=== PATIENT | female | born 1970 | race Caucasian/White ===

== ENCOUNTER 2019-11-12 14:14 | Emergency (ER) | payer OTHER ==
[2019-11-12] MEDS ORDERED: CLINDAMYCIN 900 MG/D5W RTU 900 MG/50 ML RTUPB IV ONE (15:57)
[2019-11-12] MEDS ORDERED: LEVOFLOXACIN 750 MG/D5W RTU 750 MG/150 ML RTUPB IV ONE (15:59)
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
--- NOTE | 2019-11-12 16:29 | RADIOLOGY REPORT (SQ) ---
EXAM DESCRIPTION: CT HEAD WITHOUT IMAGES COMPLETED DATE/TIME: 11/12/2019 4:14 pm REASON FOR STUDY: RIVERA left periorbital edema COMPARISON: None. TECHNIQUE: Axial images acquired through the brain without intravenous contrast. Images reviewed wi th bone, brain and subdural windows. Additional sagittal and coronal reconstructions were generated. Images stored on PACS. All CT scanners at this facility use dose modulation, iterative reconstruction, and/or weight based d osing when appropriate to reduce radiation dose to as low as reasonably achievable (ALARA). [facility]: Dose Right [facility]: CareDose [facility]: Dose Right [facility]: Teradose 4D [facility]: GloNav RADIATION DOSE: CT Rad equipment meets quality standard of care and radiation dose reduction techniq ues were employed. CTDIvol: 53.2 mGy. DLP: 1017 mGy-cm. LIMITATIONS: None. FINDINGS: There are areas of encephalomalacia and gliosis in the frontal lobes and right cerebellar hemisphere that could be posttraumatic in etiology. The posttraumatic sequela also involves the ante rior aspect of the calvarium, right orbit and right maxilla with extensive fixation hardware througho ut and subcutaneous fluid and emphysema anterior to the reconstructed frontal bone. There is no acute intracranial hemorrhage, vascular territorial infarct, extra-axial fluid collection , mass effect or midline shift. The schwartz-white matter differentiation outside the areas of the bowel ischia is preserved. There is no effacement of the basal subarachnoid cisterns. IMPRESSION: Areas of encephalomalacia and gliosis in the frontal lobes and right cerebellar hemisphe re that could be posttraumatic in etiology. The posttraumatic sequela also involves the anterior asp ect of the calvarium, right orbit and right maxilla with extensive fixation hardware throughout and s ubcutaneous fluid and emphysema anterior to the reconstructed frontal bone. Clinical correlation to establish the acuity of the postoperative findings is recommended. EVIDENCE OF ACUTE STROKE: NO. COMMENT: Quality ID # [id number]: Final reports with documentation of one or more dose reduction techniques (e.g., Automated exposure control, adjustment of the mA and/or kV according to patient size, use of iterative reconstruction technique) TECHNICAL DOCUMENTATION: JOB ID: [id number] 2010 [employer]- All Rights Reserved Reading location - IP/workstation name: [facility]
--- NOTE | 2019-11-12 16:32 | RADIOLOGY REPORT (SQ) ---
EXAM DESCRIPTION: CT FACIAL AREA WITHOUT IMAGES COMPLETED DATE/TIME: 11/12/2019 4:14 pm REASON FOR STUDY: RVIERA left periorbital edema COMPARISON: None. TECHNIQUE: Noncontrasted images through the facial bones and orbits windowed for bone and soft tissu e. Additional coronal and sagittal reconstructed images reviewed. All images stored on PACS. All CT scanners at this facility use dose modulation, iterative reconstruction, and/or weight based d osing when appropriate to reduce radiation dose to as low as reasonably achievable (ALARA). [facility]: Dose Right [facility]: CareDose [facility]: Dose Right [facility]: Teradose 4D [facility]: Smart Cuturia RADIATION DOSE: CT Rad equipment meets quality standard of care and radiation dose reduction techniq ues were employed. CTDIvol: 30.4 mGy. DLP: 636 mGy-cm. LIMITATIONS: None. FINDINGS: FACIAL BONES: Posttraumatic deformities of the anterior aspect of the calvarium (i.e. fro ntal and temporal regions), right orbit and right maxilla with extensive fixation hardware throughout and subcutaneous fluid and emphysema anterior to the reconstructed frontal bones. ORBITS: As above. The globes are intact. The optic nerve sheath complexes and extra-ocular muscles are intact. PARANASAL SINUSES: No mucosal thickening or air-fluid level. SOFT TISSUES: As above. INFERIOR BRAIN: Areas of encephalomalacia and gliosis in the frontal lobes. OTHER: No other finding. IMPRESSION: Posttraumatic deformities of the anterior aspect of the calvarium (i.e. frontal and tem poral regions), right orbit and right maxilla with extensive fixation hardware throughout and subcuta neous fluid and emphysema anterior to the reconstructed frontal bones. Clinical correlation to [facility] the acuity of the postoperative findings is recommended. TECHNICAL DOCUMENTATION: JOB ID: [id number] Quality ID # [id number]: Final reports with documentation of one or more dose reduction techniques (e.g., Au tomated exposure control, adjustment of the mA and/or kV according to patient size, use of iterative reconstruction technique) 2010 [employer]- All Rights Reserved Reading location - IP/workstation name: [email or web address]
[2019-11-12 17:20] LABS: ABSOLUTE LYMPHOCYTES (AUTO) 1.7 10^3/uL (0.5-4.7); ABSOLUTE MONOCYTES (AUTO) 0.7 10^3/uL (0.1-1.4); ABSOLUTE NEUT (AUTO) 8.6 10^3/uL (1.7-8.2); BASOPHILS % (AUTO) 0.3 % (0-2); EOSINOPHILS % (AUTO) 0.3 % (0-6); HEMATOCRIT 43.2 % (36.0-47.0); HEMOGLOBIN 15.2 g/dL (12.0-15.5); LYMPHOCYTES % (AUTO) 15.5 % (13-45); MEAN CORPUSCULAR HEMOGLOBIN 32.4 pg (27.0-33.4); MEAN CORPUSCULAR HGB CONC 35.1 g/dL (32.0-36.0); MEAN CORPUSCULAR VOLUME 92 fl (80-97); MONOCYTES % (AUTO) 6.5 % (3-13); PLATELET COUNT 287 10^3/uL (150-450); RED BLOOD COUNT 4.69 10^6/uL (3.72-5.28); RED CELL DISTRIBUTION WIDTH 12.8 % (11.5-14.0); SEGMENTED NEUTROPHILS % (AUTO) 77.4 % (42-78); TOTAL CELLS COUNTED % (AUTO) 100 %; WHITE BLOOD COUNT 11.1 10^3/uL (4.0-10.5)
[2019-11-12 17:28] LABS: APPEARANCE,URINE SLIGHTLY-CLOUDY; BILIRUBIN,URINE NEGATIVE (NEGATIVE); COLOR,URINE YELLOW; GLUCOSE, URINE NEGATIVE (NEGATIVE); KETONES,URINE NEGATIVE (NEGATIVE); LEUKOCYTE ESTERASE,URINE NEGATIVE (NEGATIVE); NITRITE,URINE NEGATIVE (NEGATIVE); PROTEIN,URINE NEGATIVE (NEGATIVE); URINE SPECIFIC GRAVITY 1.012; UROBILINOGEN,URINE NEGATIVE mg/dL (<2.0)
[2019-11-12 18:09] LABS: ALBUMIN 4.6 g/dL (3.5-5.0); ALKALINE PHOSPHATASE 69 U/L (38-126); ANION GAP 6 (5-19); ASPARTATE AMINO TRANSFERASE 38 U/L (14-36); BILIRUBIN,DIRECT 0.1 mg/dL (0.0-0.4); BILIRUBIN,TOTAL 0.8 mg/dL (0.2-1.3); BLOOD UREA NITROGEN 10 mg/dL (7-20); CALCIUM 9.4 mg/dL (8.4-10.2); CARBON DIOXIDE 32 mmol/L (22-30); CHLORIDE 99 mmol/L (98-107); GLUCOSE 103 mg/dL (75-110); POTASSIUM 3.4 mmol/L (3.6-5.0); TOTAL PROTEIN 9.2 g/dL (6.3-8.2)
[2019-11-12] MEDS ORDERED: ACETAMINOPHEN 325 MG TABLET PO ONE (18:20)
[2019-11-12] MEDS ORDERED: FAMOTIDINE INJ/PF 20 MG/2 ML SDV IV ONE (19:05)
[2019-11-12 21:08] VITALS: BP 133/78
== END 2019-11-12 21:35 | disposition short-term general hospital (02) ==
LOC: ER 14:14
DX: L03.211 Cellulitis of face (principal); S01.401A Unspecified open wound of right cheek and temporomandibular area, initial encounter; H05.222 Edema of left orbit; R22.0 Localized swelling, mass and lump, head; X58.XXXA Exposure to other specified factors, initial encounter; R50.9 Fever, unspecified; Z98.890 Other specified postprocedural states; Z88.2 Allergy status to sulfonamides
CPT/HCPCS: 99291; 99292; 96375; 96365; 96367; 36415; 87040; 87070 ×3; 87205; 87880; 85025; 87077; 80053; 81001; 87186; 70450; 70486; J3490; S0028; J1956